=== PATIENT | female | born 1930 | race Caucasian/White ===

== ENCOUNTER → 2017-08-09 | Outpatient (CLI) | payer OTHER ==
[2015-01-15 14:09] VITALS: BP 111/60
--- NOTE | 2017-08-09 14:23 | VAS ---
HISTORY: Painful area to left blake x1 day. Study: Left lower extremity ultrasound. Comparison: None. TECHNIQUE: Multiple huang scale and color flow Doppler images of the deep venous system were obtained of the left lower extremity. FINDINGS: The deep venous system of the left lower extremity was evaluated from the level of the common femoral vein through the popliteal vein. Normal color flow and augmentation can be observed. In addition, normal compression is seen throughout the deep venous system. IMPRESSION: Negative for DVT. Reported By:
== END ==
LOC: RAD 13:03
PROVIDERS: ATTEND Internal Medicine
DX: M79.662 Pain in left lower leg (principal)
CPT/HCPCS: 93971

== ENCOUNTER 2018-05-02 17:19 | Observation (INO) ==
[2018-05-02 18:55] LABS: BASOPHILS # (AUTO) 0.1 X10^3/uL (0.0-0.1); BASOPHILS % (AUTO) 0.9 % (0.2-1.0); EOSINOPHILS # (AUTO) 0.2 x10^3/uL (0.0-0.2); HEMATOCRIT 40.8 % (36.0-47.0); HEMOGLOBIN 13.9 g/dL (12.0-16.0); LYMPHOCYTES # (AUTO) 2.2 X10^3/uL (1.3-2.9); LYMPHOCYTES % (AUTO) 29.3 % (21.0-51.0); MEAN CORPUSCULAR HEMOGLOBIN 33.6 pg (27.0-34.0); MEAN CORPUSCULAR VOLUME 98.6 fL (80.0-100.0); MEAN PLATELET VOLUME 8.9 fL (7.4-11.0); MONOCYTES # (AUTO) 0.6 x10^3/uL (0.3-0.8); MONOCYTES % (AUTO) 8.3 % (0.0-13.0); NEUTROPHILS # (AUTO) 4.4 x10^3/uL (2.2-4.8); NEUTROPHILS % (AUTO) 58.5 % (42.0-75.0); PLATELET COUNT 176 X10^3/uL (150.0-450.0); RED BLOOD COUNT 4.14 X10^6/uL (3.5-5.4); RED CELL DISTRIBUTION WIDTH 12.9 % (11.6-16.5); WHITE BLOOD COUNT 7.4 X10^3/uL (3.6-10.0)
[2018-05-02 19:10] LABS: ALANINE AMINOTRANSFERASE 22 Units/L (12-78); ALBUMIN 3.8 g/dL (3.4-5.0); ALKALINE PHOSPHATASE 58 Units/L (46-116); ASPARTATE AMINO TRANSFERASE 17 Units/L (15-37); BLOOD UREA NITROGEN 31 mg/dL (7-18); CALCIUM 9.1 mg/dL (8.5-10.1); CARBON DIOXIDE 29.1 mmol/L (21-32); CHLORIDE 107 mmol/L (98-107); CREATININE 1.28 mg/dL (0.55-1.02); SODIUM 143 mmol/L (136-145); TOTAL PROTEIN 7.2 g/dL (6.4-8.2); eGFR NON BLACK RACES 42 (>60)
[2018-05-02] MEDS: MILK OF MAGNESIA PO SCH (20:05)
[2018-05-02] MEDS: COLACE CAP 100 MG PO SCH (20:05)
[2018-05-02] MEDS: MIRALAX POWDER (1 DOSE 17 G) PO SCH (20:05)
--- NOTE | 2018-05-02 20:09 | RAD ---
HISTORY: Abdominal pain Study: Frontal view of the chest, flat and upright views of the abdomen Comparison: None. Findings: Cardiomediastinal silhouette is normal in size. No focal consolidations, pleural effusions or pneumothorax. Bilateral hyper expansion with coarsening of interstitial markings.. Flat and upright views of the abdomen demonstrates a normal bowel gas pattern. No free air. No abnormal calcifications or abnormal soft tissue shadows. No acute bony abnormalities. IMPRESSION: 1. No acute cardiopulmonary disease. 2. No evidence for acute abdominal pathology. Reported By:
--- NOTE | 2018-05-02 20:10 | RAD ---
HISTORY: Fall with pain Study: 5 views of the lumbar spine Comparison: MRI lumbar spine 05/04/2016 Findings: Normal alignment without subluxation or listhesis. Severe multilevel degenerative disc disease. Chronic L3 compression deformity. Sacroiliac joints are unremarkable. No evidence for acute fracture can be identified. IMPRESSION: 1. No acute abnormality of the lumbar spine. Reported By:
--- NOTE | 2018-05-02 20:15 | RAD ---
HISTORY: Fall with pain Study: Single view of the pelvis and 1 views of the right hip. Comparison: None Findings: A single frontal view of the pelvis demonstrates the pelvic ring to be intact. No acute fractures or dislocations. Sacroiliac joints are normal appearance. The femoral heads appear well seated in the acetabulum. Dedicated views of the hip fails to demonstrate evidence for fracture or significant joint abnormality. Impression: 1. No acute abnormality of the right hip. Reported By:
[2018-05-02] MEDS ORDERED: TORADOL 15 MG VIAL IVP PRN (20:21)
[2018-05-02] MEDS: NS 1000 ML 1,000 ML IV SCH (20:21)
[2018-05-02 21:20] VITALS: BMI 29.0
[2018-05-02] MEDS ORDERED: RESTORIL CAP 15 MG PO PRN (22:04)
[2018-05-02] MEDS: NORCO 10/325 TAB PO PRN (22:40)
[2018-05-02 23:33] LABS: BILIRUBIN,URINE NEGATIVE (NEGATIVE); BLOOD/HEMOGLOBIN,URINE 1+ (NEGATIVE); GLUCOSE, URINE NEGATIVE (NEGATIVE); KETONES,URINE NEGATIVE (NEGATIVE); LEUKOCYTE ESTERASE ,URINE 1+ (NEGATIVE); NITRITES,URINE NEGATIVE (NEGATIVE); PROTEIN,URINE NEGATIVE (NEGATIVE); UROBILINOGEN,URINE NORMAL (NORMAL)
[2018-05-02 23:41] LABS: APPEARANCE,URINE CLEAR (CLEAR); COLOR,URINE PALE YELLOW (YELLOW)
[2018-05-02 23:42] LABS: BACTERIA,URINE NEGATIVE /HPF (NEGATIVE); RBC,URINE 0-2 /HPF (NONE SEEN); SQUAMOUS EPITHELIAL CELL,UR RARE /HPF (NEGATIVE)
[2018-05-03 05:20] LABS: BASOPHILS # (AUTO) 0.1 X10^3/uL (0.0-0.1); BASOPHILS % (AUTO) 0.9 % (0.2-1.0); EOSINOPHILS # (AUTO) 0.3 x10^3/uL (0.0-0.2); EOSINOPHILS % (AUTO) 4.1 % (0.9-2.9); HEMATOCRIT 38.4 % (36.0-47.0); HEMOGLOBIN 13.1 g/dL (12.0-16.0); LYMPHOCYTES # (AUTO) 2.4 X10^3/uL (1.3-2.9); LYMPHOCYTES % (AUTO) 35.6 % (21.0-51.0); MEAN CORPUSCULAR HEMOGLOBIN 33.8 pg (27.0-34.0); MEAN CORPUSCULAR VOLUME 99.5 fL (80.0-100.0); MEAN PLATELET VOLUME 9.4 fL (7.4-11.0); MONOCYTES # (AUTO) 0.7 x10^3/uL (0.3-0.8); NEUTROPHILS # (AUTO) 3.4 x10^3/uL (2.2-4.8); NEUTROPHILS % (AUTO) 49.4 % (42.0-75.0); PLATELET COUNT 159 X10^3/uL (150.0-450.0); RED BLOOD COUNT 3.86 X10^6/uL (3.5-5.4); RED CELL DISTRIBUTION WIDTH 12.7 % (11.6-16.5); WHITE BLOOD COUNT 6.9 X10^3/uL (3.6-10.0)
[2018-05-03 05:41] LABS: ALANINE AMINOTRANSFERASE 21 Units/L (12-78); ALBUMIN 3.1 g/dL (3.4-5.0); ALKALINE PHOSPHATASE 51 Units/L (46-116); ASPARTATE AMINO TRANSFERASE 20 Units/L (15-37); BLOOD UREA NITROGEN 28 mg/dL (7-18); CALCIUM 8.5 mg/dL (8.5-10.1); CARBON DIOXIDE 26.9 mmol/L (21-32); CHLORIDE 107 mmol/L (98-107); COR CA(FOR HYPOALB) 9.2 mg/dL (8.5-10.1); CREATININE 1.03 mg/dL (0.55-1.02); SODIUM 142 mmol/L (136-145); TOTAL PROTEIN 6.2 g/dL (6.4-8.2); eGFR NON BLACK RACES 54 (>60)
[2018-05-03] MEDS: MILK OF MAGNESIA PO SCH ×5 (08:30→20:42)
[2018-05-03] MEDS: COLACE CAP 100 MG PO SCH ×3 (08:30→20:40)
[2018-05-03] MEDS: NORCO 10/325 TAB PO PRN ×2 (08:30→20:46)
[2018-05-03] MEDS: MIRALAX POWDER (1 DOSE 17 G) PO SCH (08:30)
[2018-05-03] MEDS: NS 1000 ML 1,000 ML IV SCH ×2 (08:32→23:45)
[2018-05-03] MEDS: SINGULAIR TAB 10 MG PO SCH (11:01)
[2018-05-03] MEDS: ZANTAC PO SCH (11:01)
[2018-05-03] MEDS: VITAMIN D3 PO SCH (11:01)
[2018-05-03] MEDS: HEMOCYTE-PLUS PO SCH (11:01)
[2018-05-03] MEDS: COZAAR PO SCH (11:02)
[2018-05-03] MEDS: PriLOSEC PO SCH (11:02)
[2018-05-03] MEDS: LOVENOX INJ 30 MG SYR SC SCH (11:04)
[2018-05-03] MEDS: SYNTHROID 75 mcg TAB PO SCH (11:05)
[2018-05-03] MEDS: NEURONTIN CAP 300 MG PO SCH ×3 (11:05→22:10)
--- NOTE | 2018-05-03 11:30 | US ---
History: Neck pain Study: Ultrasound of the neck Lungs: No abnormal mass or adenopathy or fluid collection is demonstrated. There is a large amount of calcified plaque in the distal right common carotid artery and carotid bulb. This is much more than demonstrated on the carotid duplex ultrasound examination of October 2011. Impression: 1. Severe atherosclerotic plaque at the right common carotid artery bifurcation, apparently progressive since 2011 2. No neck mass or adenopathy demonstrated Reported By:
[2018-05-03] MEDS: LIPITOR TAB 20 MG PO SCH (20:40)
[2018-05-03] MEDS: ZyrTEC TAB 10 MG PO SCH (20:40)
[2018-05-03] MEDS: AMBIEN PO PRN (20:41)
[2018-05-04 05:19] LABS: BASOPHILS # (AUTO) 0.1 X10^3/uL (0.0-0.1); BASOPHILS % (AUTO) 0.9 % (0.2-1.0); EOSINOPHILS # (AUTO) 0.2 x10^3/uL (0.0-0.2); EOSINOPHILS % (AUTO) 3.5 % (0.9-2.9); HEMATOCRIT 34.7 % (36.0-47.0); HEMOGLOBIN 11.7 g/dL (12.0-16.0); LYMPHOCYTES # (AUTO) 1.9 X10^3/uL (1.3-2.9); MEAN CORPUSCULAR HEMOGLOBIN 33.7 pg (27.0-34.0); MEAN CORPUSCULAR HGB CONC 33.8 g/dL (33.0-35.0); MEAN CORPUSCULAR VOLUME 99.7 fL (80.0-100.0); MEAN PLATELET VOLUME 9.3 fL (7.4-11.0); MONOCYTES # (AUTO) 0.6 x10^3/uL (0.3-0.8); MONOCYTES % (AUTO) 10.1 % (0.0-13.0); NEUTROPHILS # (AUTO) 2.8 x10^3/uL (2.2-4.8); NEUTROPHILS % (AUTO) 50.5 % (42.0-75.0); PLATELET COUNT 134 X10^3/uL (150.0-450.0); RED BLOOD COUNT 3.48 X10^6/uL (3.5-5.4); RED CELL DISTRIBUTION WIDTH 13.1 % (11.6-16.5); WHITE BLOOD COUNT 5.5 X10^3/uL (3.6-10.0)
[2018-05-04 05:26] LABS: ALANINE AMINOTRANSFERASE 20 Units/L (12-78); ALBUMIN 2.6 g/dL (3.4-5.0); ALKALINE PHOSPHATASE 56 Units/L (46-116); ASPARTATE AMINO TRANSFERASE 18 Units/L (15-37); BLOOD UREA NITROGEN 26 mg/dL (7-18); CALCIUM 7.7 mg/dL (8.5-10.1); CARBON DIOXIDE 26.3 mmol/L (21-32); CHLORIDE 111 mmol/L (98-107); COR CA(FOR HYPOALB) 8.8 mg/dL (8.5-10.1); COR NA(FOR HYPERGLY) 144 mmol/L (136-145); CREATININE 1.07 mg/dL (0.55-1.02); SODIUM 144 mmol/L (136-145); TOTAL PROTEIN 5.3 g/dL (6.4-8.2); eGFR NON BLACK RACES 51 (>60)
[2018-05-04] MEDS: NEURONTIN CAP 300 MG PO SCH ×3 (05:49→21:28)
[2018-05-04] MEDS: PriLOSEC PO SCH (10:15)
[2018-05-04] MEDS: ZANTAC PO SCH (10:15)
[2018-05-04] MEDS: VITAMIN D3 PO SCH (10:15)
[2018-05-04] MEDS: HEMOCYTE-PLUS PO SCH (10:15)
[2018-05-04] MEDS: SINGULAIR TAB 10 MG PO SCH (10:15)
[2018-05-04] MEDS: SYNTHROID 75 mcg TAB PO SCH (10:15)
[2018-05-04] MEDS: LOVENOX INJ 30 MG SYR SC SCH (10:16)
[2018-05-04] MEDS: MILK OF MAGNESIA PO SCH ×4 (10:16→21:31)
[2018-05-04] MEDS: COLACE CAP 100 MG PO SCH ×2 (10:16→21:27)
[2018-05-04] MEDS: COZAAR PO SCH (10:16)
[2018-05-04] MEDS: MIRALAX POWDER (1 DOSE 17 G) PO SCH (10:16)
[2018-05-04] MEDS: NS 1000 ML 1,000 ML IV SCH ×3 (11:53→21:27)
[2018-05-04] MEDS: LIPITOR TAB 20 MG PO SCH (21:27)
[2018-05-04] MEDS: ZyrTEC TAB 10 MG PO SCH (21:27)
[2018-05-04] MEDS: AMBIEN PO PRN (21:27)
[2018-05-04] MEDS: NORCO 10/325 TAB PO PRN (21:34)
[2018-05-05 05:22] LABS: BASOPHILS # (AUTO) 0.1 X10^3/uL (0.0-0.1); EOSINOPHILS # (AUTO) 0.2 x10^3/uL (0.0-0.2); EOSINOPHILS % (AUTO) 4.1 % (0.9-2.9); HEMATOCRIT 34.3 % (36.0-47.0); HEMOGLOBIN 11.5 g/dL (12.0-16.0); LYMPHOCYTES # (AUTO) 2.1 X10^3/uL (1.3-2.9); MEAN CORPUSCULAR HEMOGLOBIN 33.4 pg (27.0-34.0); MEAN CORPUSCULAR HGB CONC 33.5 g/dL (33.0-35.0); MEAN CORPUSCULAR VOLUME 99.8 fL (80.0-100.0); MEAN PLATELET VOLUME 9.4 fL (7.4-11.0); MONOCYTES # (AUTO) 0.5 x10^3/uL (0.3-0.8); MONOCYTES % (AUTO) 9.1 % (0.0-13.0); NEUTROPHILS # (AUTO) 2.7 x10^3/uL (2.2-4.8); NEUTROPHILS % (AUTO) 47.8 % (42.0-75.0); PLATELET COUNT 138 X10^3/uL (150.0-450.0); RED BLOOD COUNT 3.43 X10^6/uL (3.5-5.4); RED CELL DISTRIBUTION WIDTH 12.9 % (11.6-16.5); WHITE BLOOD COUNT 5.7 X10^3/uL (3.6-10.0)
[2018-05-05 05:36] LABS: ALANINE AMINOTRANSFERASE 21 Units/L (12-78); ALBUMIN 2.6 g/dL (3.4-5.0); ALKALINE PHOSPHATASE 58 Units/L (46-116); ASPARTATE AMINO TRANSFERASE 21 Units/L (15-37); BLOOD UREA NITROGEN 19 mg/dL (7-18); CALCIUM 7.8 mg/dL (8.5-10.1); CARBON DIOXIDE 24.1 mmol/L (21-32); CHLORIDE 113 mmol/L (98-107); COR CA(FOR HYPOALB) 8.9 mg/dL (8.5-10.1); CREATININE 1.06 mg/dL (0.55-1.02); SODIUM 145 mmol/L (136-145); TOTAL PROTEIN 5.3 g/dL (6.4-8.2); eGFR NON BLACK RACES 52 (>60)
[2018-05-05] MEDS: NEURONTIN CAP 300 MG PO SCH (05:41)
[2018-05-05] MEDS: LOVENOX INJ 30 MG SYR SC SCH (08:53)
[2018-05-05] MEDS: MILK OF MAGNESIA PO SCH ×2 (08:53→09:01)
[2018-05-05] MEDS: SINGULAIR TAB 10 MG PO SCH (08:54)
[2018-05-05] MEDS: PriLOSEC PO SCH (08:54)
[2018-05-05] MEDS: HEMOCYTE-PLUS PO SCH (08:54)
[2018-05-05] MEDS: VITAMIN D3 PO SCH (08:54)
[2018-05-05] MEDS: SYNTHROID 75 mcg TAB PO SCH (08:54)
[2018-05-05] MEDS: COLACE CAP 100 MG PO SCH (08:54)
[2018-05-05] MEDS: COZAAR PO SCH (08:54)
[2018-05-05] MEDS: ZANTAC PO SCH (08:54)
[2018-05-05] MEDS: MIRALAX POWDER (1 DOSE 17 G) PO SCH (08:55)
[2018-05-05 15:48] VITALS: BP 137/75
--- NOTE | 2018-05-23 09:04 | DR.UPDATE ---
H&P Update History and Physical Update: WAS SEEN IN THE OFFICE TODAY FOR CONSTIPATION, DESPITE US OF LAXATIVES AT HOME. SHE ALSO REPORTED BACK PAIN, ABDOMINAL PAIN, AND FREQUENT FALLS AT HOME. SHE WAS ADMITTED FOR FURTHER EVALUATION AND TREATMENT. A H&P WAS COMPLETED PRIOR TO ADMISSION. PATIENT HAS BEEN SEEN AND EXAMINED WITH NO CHANGES NOTED TO H&P. Changes noted: NO Yes with the following:
--- NOTE | 2018-05-23 11:09 | PCM.PROG ---
Progress Note - Progress Note for Day of Date of Exam: 05/03/18 - Subjective Subjective: WAS ADMITTED FOR CONSTIPATION, ABDOMINAL PAIN, BACK PAIN, AND FREQUENT FALLS. TODAY, SHE IS ALERT AND ORIENTED, LYING IN BED ON MORNING ROUNDS. SHE CONTINUES WITH COMPLAINTS OF LOWER BACK PAIN AND ABDOMINAL PAIN, BUT REPORTS SLIGHT IMPROVEMENT SINCE YESTERDAY. SHE HAS HAD SEVERAL BOWEL MOVMEMENTS SINCE ADMISSION. SHE ALSO REPORTS THAT HER NECK IS SWOLLEN THIS MORNING. ON EXAMINATION, HEART IS REGULAR IN RATE AND RHYTHM. THERE IS SLIGHT SWELLING APPARENT TO THE NECK WITH TENDERNESS NOTED TO RIGHT SIDE ON PALPATION. BILATERAL LUNGS NOTED WITH DIMINISHED LUNG SOUNDS THROUGHOUT. ABDOMEN IS ROUND, SOFT, AND NOTED WITH MILD, DIFFUSE TENDERNESS. HER VITALS THIS MORNING ARE 98.1-78- 20-95%-181/95. LABS WERE OBTAINED. ABNORMAL LAB VALUES INCLUDE THE FOLLOWING: BUN 28, CREATININE 1.03, GLUCOSE 101, TOTAL PROTEIN 6.2, ALBUMIN 3.1. HIP XRAY OBTAINED ON ADMISSION WAS NORMAL. LUMBAR SPINE XRAY REVEALED NO ACUTE ABNORMALITY. TODAY, WE WILL OBTAIN A SOFT TISSUE ULTRASOUND OF THE NECK AND START LOVENOX 30MG SC DAILY. OTHERWISE, WE WILL CONTINUE WITH IV HYDRATION AND PAIN CONTROL. WE PLAN TO FOLLOW UP WITH AM LABS AND CONTINUE TO MONITOR. - Past Medical Family Social History Past Med/Fam/Surg Hx: No changes since H&P Allergies: Allergies Penicillins Allergy (Verified 05/02/18 21:06) Sulfa (Sulfonamide Antibiotics) Allergy (Verified 05/02/18 21:06) - Review of Systems ROS: No change since H&P - Vital Signs and I&O's Vital Signs: Temperature 98.6 F Pulse Rate [Left Brachial] 73 Pulse Rate [Left Dorsalis 72 Pedis] Pulse Rate [Right Brachial] 66 Respiratory Rate 20 Blood Pressure [Left Arm] 137/75 Blood Pressure [Right Arm] 145/64 Blood Pressure 111/60 O2 Sat by Pulse Oximetry 95 - Physical Exam Oriented: Normal Eyes: Normal Ear: Normal Nose: Normal Throat: Normal Respiratory: Diminished Cardiovascular: Normal. negative: S3, S4, Murmur : Normal Auscultation: Bowel Sounds: Normal Palpation: Normal Tenderness: Diffuse, Mild. negative: Rebound, Guarding, Rigidity Skin: Normal Musculoskeletal: Hip, Back:Lumbar, Tender Psychiatric: Normal Mood Description: Calm Affect: Normal Speech Pattern: Clear, Appropriate - Laboratory and Diagnostics Result Diagrams: 05/05/18 04:10 05/05/18 04:10 Labs: 05/02/18 23:22 Urine,Clean Catch Urine Culture - Final Laboratory WBC 5.7 X10^3/uL (3.6-10.0) 05/05/18 04:10 RBC 3.43 X10^6/uL (3.5-5.4) L 05/05/18 04:10 Hgb 11.5 g/dL (12.0-16.0) L 05/05/18 04:10 Hct 34.3 % (36.0-47.0) L 05/05/18 04:10 MCV 99.8 fL (80.0-100.0) 05/05/18 04:10 MCH 33.4 pg (27.0-34.0) 05/05/18 04:10 MCHC 33.5 g/dL (33.0-35.0) 05/05/18 04:10 RDW 12.9 % (11.6-16.5) 05/05/18 04:10 Plt Count 138 X10^3/uL (150.0-450.0) L 05/05/18 04:10 MPV 9.4 fL (7.4-11.0) 05/05/18 04:10 Neut % (Auto) 47.8 % (42.0-75.0) 05/05/18 04:10 Lymph % (Auto) 38.0 % (21.0-51.0) 05/05/18 04:10 [place] % (Auto) 9.1 % (0.0-13.0) 05/05/18 04:10 Eos % (Auto) 4.1 % (0.9-2.9) H 05/05/18 04:10 Baso % (Auto) 1.0 % (0.2-1.0) 05/05/18 04:10 Neut # (Auto) 2.7 x10^3/uL (2.2-4.8) 05/05/18 04:10 Lymph # (Auto) 2.1 X10^3/uL (1.3-2.9) 05/05/18 04:10 [place] # (Auto) 0.5 x10^3/uL (0.3-0.8) 05/05/18 04:10 Eos # (Auto) 0.2 x10^3/uL (0.0-0.2) 05/05/18 04:10 Baso # (Auto) 0.1 X10^3/uL (0.0-0.1) 05/05/18 04:10 Absolute Nucleated RBC 0.1 /100WBC 05/05/18 04:10 Sodium 145 mmol/L (136-145) 05/05/18 04:10 Corrected Sodium TNP 05/05/18 04:10 Potassium 3.6 mmol/L (3.5-5.1) 05/05/18 04:10 Chloride 113 mmol/L (98-107) H 05/05/18 04:10 Carbon Dioxide 24.1 mmol/L (21-32) 05/05/18 04:10 BUN 19 mg/dL (7-18) H 05/05/18 04:10 Creatinine 1.06 mg/dL (0.55-1.02) H 05/05/18 04:10 Est GFR (MDRD) Af Amer > 60 (>60) 05/05/18 04:10 Est GFR (MDRD) Non-Af 52 (>60) L 05/05/18 04:10 Glucose 98 mg/dL (65-99) 05/05/18 04:10 Calcium 7.8 mg/dL (8.5-10.1) L 05/05/18 04:10 Corrected Calcium 8.9 mg/dL (8.5-10.1) 05/05/18 04:10 Total Bilirubin 0.30 mg/dL (0.2-1.0) 05/05/18 04:10 AST 21 Units/L (15-37) 05/05/18 04:10 ALT 21 Units/L (12-78) 05/05/18 04:10 Alkaline Phosphatase 58 Units/L (46-116) 05/05/18 04:10 Total Protein 5.3 g/dL (6.4-8.2) L 05/05/18 04:10 Albumin 2.6 g/dL (3.4-5.0) L 05/05/18 04:10 Globulin 2.7 g/dL (2.5-4.5) 05/05/18 04:10 Albumin/Globulin Ratio 1.0 Ratio (1.1-2.1) L 05/05/18 04:10 Specimen Type Clean catch urine 05/02/18 23:22 Urine Color Pale yellow (YELLOW) 05/02/18 23:22 Urine Appearance Clear (CLEAR) 05/02/18 23:22 Urine pH 7.0 (5.0 - 8.0) 05/02/18 23:22 Ur Specific [place] 1.010 (1.000-1.030) 05/02/18 23:22 Urine Protein Negative (NEGATIVE) 05/02/18 23:22 Urine Glucose (UA) Negative (NEGATIVE) 05/02/18 23:22 Urine Ketones Negative (NEGATIVE) 05/02/18 23:22 Urine Occult Blood 1+ (NEGATIVE) 05/02/18 23:22 Urine Nitrite Negative (NEGATIVE) 05/02/18 23:22 Urine Bilirubin Negative (NEGATIVE) 05/02/18 23:22 Urine Urobilinogen Normal (NORMAL) 05/02/18 23:22 Ur Leukocyte Esterase 1+ (NEGATIVE) 05/02/18 23:22 Urine RBC 0-2 /HPF (NONE SEEN) 05/02/18 23:22 Urine WBC 0-2 /HPF (NONE SEEN) 05/02/18 23:22 Ur Squamous Epith Cells Rare /HPF (NEGATIVE) 05/02/18 23:22 Urine Bacteria Negative /HPF (NEGATIVE) 05/02/18 23:22 Ur Culture Indicated? No/not indicated 05/02/18 23:22 - Plan (1) Constipation Status: Acute Qualifiers: Constipation type: unspecified constipation type Qualified Code(s): K59.00 - Constipation, unspecified Plan: CONTINUE BOWEL REGIMEN (2) Abdominal pain Status: Acute Qualifiers: Abdominal location: generalized Qualified Code(s): R10.84 - Generalized abdominal pain Plan: IV TORADOL, NORCO, CONTINUE BOWEL REGIMEN, CONTINUE TO MONITOR (3) Intractable pain Status: Acute Plan: IV TORADOL, NORCO, CONTINUE TO MONITOR (4) Back pain Status: Acute Qualifiers: Back pain location: low back pain Chronicity: acute Back pain laterality: unspecified Sciatica presence: unspecified whether sciatica present Qualified Code(s): M54.5 - Low back pain Plan: IV TORADOL, NORCO, CONTINUE TO MONITOR (5) Frequent falls Status: Acute Plan: PHYSICAL THERAPY
== END 2018-05-05 13:30 | disposition home or self-care (01) ==
LOC: MED/SURG
PROVIDERS: ADMIT Internal Medicine; ATTEND Internal Medicine
DX: E11.65 Type 2 diabetes mellitus with hyperglycemia; R10.84 Generalized abdominal pain; R94.4 Abnormal results of kidney function studies; W18.39XA Other fall on same level, initial encounter; E03.8 Other specified hypothyroidism; R94.31 Abnormal electrocardiogram [ECG] [EKG]; M54.5 Low back pain; Z79.899 Other long term (current) drug therapy; H65.23 Chronic serous otitis media, bilateral; M25.551 Pain in right hip; I67.2 Cerebral atherosclerosis; K59.09 Other constipation; E55.9 Vitamin D deficiency, unspecified; R29.6 Repeated falls; E78.2 Mixed hyperlipidemia; M54.2 Cervicalgia
CPT/HCPCS: 36415; 72110; 73501; 74022; 76536; 80053; 81001; 85025; 87086; 93005; 96367; 96372; 96374; A4216; A4222; G0378; J1650; J1885; J7030

== ENCOUNTER 2018-09-18 08:44 | Observation (INO) ==
[2018-09-18] MEDS: NS 1000 ML 1,000 ML IV SCH (10:41)
[2018-09-18 10:58] LABS: BASOPHILS # (AUTO) 0.1 X10^3/uL (0.0-0.1); BASOPHILS % (AUTO) 0.9 % (0.2-1.0); EOSINOPHILS # (AUTO) 0.2 x10^3/uL (0.0-0.2); EOSINOPHILS % (AUTO) 3.4 % (0.9-2.9); HEMATOCRIT 36.4 % (36.0-47.0); HEMOGLOBIN 12.2 g/dL (12.0-16.0); LYMPHOCYTES # (AUTO) 1.6 X10^3/uL (1.3-2.9); LYMPHOCYTES % (AUTO) 27.4 % (21.0-51.0); MEAN CORPUSCULAR HEMOGLOBIN 33.6 pg (27.0-34.0); MEAN CORPUSCULAR HGB CONC 33.6 g/dL (33.0-35.0); MEAN CORPUSCULAR VOLUME 99.9 fL (80.0-100.0); MEAN PLATELET VOLUME 8.3 fL (7.4-11.0); MONOCYTES # (AUTO) 0.7 x10^3/uL (0.3-0.8); MONOCYTES % (AUTO) 11.2 % (0.0-13.0); NEUTROPHILS # (AUTO) 3.4 x10^3/uL (2.2-4.8); NEUTROPHILS % (AUTO) 57.1 % (42.0-75.0); PLATELET COUNT 178 X10^3/uL (150.0-450.0); RED BLOOD COUNT 3.65 X10^6/uL (3.5-5.4); RED CELL DISTRIBUTION WIDTH 13.2 % (11.6-16.5)
[2018-09-18 11:03] VITALS: BMI 29.0
[2018-09-18 11:05] LABS: ALANINE AMINOTRANSFERASE 24 Units/L (12-78); ALBUMIN 3.3 g/dL (3.4-5.0); ALKALINE PHOSPHATASE 56 Units/L (46-116); ASPARTATE AMINO TRANSFERASE 19 Units/L (15-37); BLOOD UREA NITROGEN 24 mg/dL (7-18); CALCIUM 8.9 mg/dL (8.5-10.1); CHLORIDE 107 mmol/L (98-107); COR CA(FOR HYPOALB) 9.5 mg/dL (8.5-10.1); CREATININE 1.18 mg/dL (0.55-1.02); SODIUM 141 mmol/L (136-145); TOTAL PROTEIN 6.4 g/dL (6.4-8.2); eGFR NON BLACK RACES 46 (>60)
--- NOTE | 2018-09-18 11:39 | RAD ---
History: Shortness of breath Study: AP chest Comparison: Report of a chest x-ray of December 2014 Findings: The lungs appear hyperinflated. The heart size is normal. There is no edema or effusion congestion or pneumothorax. There is minimal left apical pleural thickening. Impression: Hyperinflation suggesting COPD Reported By:
--- NOTE | 2018-09-18 11:56 | CT ---
HEAD CT WITHOUT IV CONTRAST CLINICAL INDICATION: Weakness and fatigue TECHNIQUE: Axial CT images from skull base to vertex without IV contrast.Dose reduction techniques including Automated Exposure Control (AEC) and adjustment of mA and kV were utlized. COMPARISON: 02/22/2015 FINDINGS: Diffuse patchy and confluent white matter hypoattenuation with associated volume loss. There is no evidence of acute infarction, intracranial hemorrhage, mass or mass effect, or abnormal extra-axial collection. The density of the larger dural venous sinuses is normal. Age-related, ex-vacuo dilatation of the ventricles and sulci. The skull base and calvarium are normal. Unerupted left maxillary molar. Air and fluid within the left maxillary sinus.. IMPRESSION: 1. No acute intracranial abnormality. Chronic microangiopathic changes and ex vacuo dilatation of the ventricles and sulci. 2. Air in fluid within the left maxillary sinus with findings of chronic sinusitis. Correlate Reported By:
[2018-09-18 12:55] LABS: BILIRUBIN,URINE NEGATIVE (NEGATIVE); BLOOD/HEMOGLOBIN,URINE NEGATIVE (NEGATIVE); GLUCOSE, URINE NEGATIVE (NEGATIVE); KETONES,URINE NEGATIVE (NEGATIVE); LEUKOCYTE ESTERASE ,URINE 1+ (NEGATIVE); NITRITES,URINE NEGATIVE (NEGATIVE); PH,URINE 6.5 (5.0 - 8.0); PROTEIN,URINE NEGATIVE (NEGATIVE); UROBILINOGEN,URINE NORMAL (NORMAL)
[2018-09-18 13:00] LABS: APPEARANCE,URINE CLEAR (CLEAR); COLOR,URINE YELLOW (YELLOW)
[2018-09-18 13:05] LABS: RBC,URINE 0-2 /HPF (NONE SEEN)
[2018-09-18 13:06] LABS: AMORPHOUS SEDIMENT,UR 1+ /HPF (NEGATIVE); BACTERIA,URINE TRACE /HPF (NEGATIVE); SQUAMOUS EPITHELIAL CELL,UR RARE /HPF (NEGATIVE)
[2018-09-18] MEDS ORDERED: TRAMADOL ACETAMINOPHEN PO PRN (19:38)
[2018-09-18] MEDS ORDERED: FLUTICASONE PROPION SALMETEROL IN SCH (19:45)
[2018-09-18] MEDS: REQUIP PO SCH (20:33)
[2018-09-18] MEDS: MIRALAX POWDER (1 DOSE 17 G) PO SCH (20:33)
[2018-09-18] MEDS: LIPITOR TAB 20 MG PO SCH (20:33)
[2018-09-18] MEDS: NORCO 10/325 TAB PO PRN (20:34)
[2018-09-18] MEDS: AMBIEN PO PRN (20:34)
[2018-09-18] MEDS: ZyrTEC TAB 10 MG PO SCH (20:37)
[2018-09-18] MEDS: COZAAR PO SCH (20:37)
[2018-09-18] MEDS: PULMICORT NEB TX 0.5 MG NEB SCH (21:15)
[2018-09-18] MEDS: NEURONTIN CAP 300 MG PO SCH (21:17)
[2018-09-19] MEDS ORDERED: PROVENTIL NEB TX 0.083% 2.5MG/ 3ML NEB SCH
[2018-09-19] MEDS: NS 1000 ML 1,000 ML IV SCH ×2 (00:38→13:09)
[2018-09-19] MEDS: NEURONTIN CAP 300 MG PO SCH ×3 (05:32→21:00)
[2018-09-19 06:09] LABS: BASOPHILS # (AUTO) 0.1 X10^3/uL (0.0-0.1); EOSINOPHILS # (AUTO) 0.2 x10^3/uL (0.0-0.2); EOSINOPHILS % (AUTO) 3.9 % (0.9-2.9); HEMATOCRIT 34.4 % (36.0-47.0); HEMOGLOBIN 11.5 g/dL (12.0-16.0); LYMPHOCYTES % (AUTO) 34.3 % (21.0-51.0); MEAN CORPUSCULAR HEMOGLOBIN 33.6 pg (27.0-34.0); MEAN CORPUSCULAR HGB CONC 33.6 g/dL (33.0-35.0); MEAN CORPUSCULAR VOLUME 100.2 fL (80.0-100.0); MEAN PLATELET VOLUME 8.5 fL (7.4-11.0); MONOCYTES # (AUTO) 0.6 x10^3/uL (0.3-0.8); MONOCYTES % (AUTO) 10.4 % (0.0-13.0); NEUTROPHILS # (AUTO) 2.9 x10^3/uL (2.2-4.8); NEUTROPHILS % (AUTO) 50.4 % (42.0-75.0); PLATELET COUNT 164 X10^3/uL (150.0-450.0); RED BLOOD COUNT 3.43 X10^6/uL (3.5-5.4); RED CELL DISTRIBUTION WIDTH 13.2 % (11.6-16.5); WHITE BLOOD COUNT 5.7 X10^3/uL (3.6-10.0)
[2018-09-19 06:16] LABS: ALANINE AMINOTRANSFERASE 19 Units/L (12-78); ALBUMIN 2.7 g/dL (3.4-5.0); ALKALINE PHOSPHATASE 44 Units/L (46-116); ASPARTATE AMINO TRANSFERASE 16 Units/L (15-37); BLOOD UREA NITROGEN 18 mg/dL (7-18); CALCIUM 8.3 mg/dL (8.5-10.1); CARBON DIOXIDE 24.7 mmol/L (21-32); CHLORIDE 113 mmol/L (98-107); COR CA(FOR HYPOALB) 9.3 mg/dL (8.5-10.1); CREATININE 0.93 mg/dL (0.55-1.02); SODIUM 145 mmol/L (136-145); TOTAL PROTEIN 5.4 g/dL (6.4-8.2); eGFR NON BLACK RACES > 60 (>60)
[2018-09-19] MEDS ORDERED: SYNTHROID 75 mcg TAB PO SCH (06:30)
[2018-09-19] MEDS ORDERED: POTASSIUM CHL 40 MEQ/NS 0.45% 500 ML IV PRN (08:05)
[2018-09-19] MEDS ORDERED: K-DUR TAB 20 MEQ PO PRN (08:05)
[2018-09-19] MEDS ORDERED: MICRO K EXTEN CAP 10 MEQ PO PRN (08:05)
[2018-09-19] MEDS ORDERED: POTASSIUM CHL 60 MEQ/NS 0.45% 500 ML IV PRN (08:05)
[2018-09-19] MEDS ORDERED: K-RIDER 10 MEQ/NS 100 ML 10 MEQ/100 ML BAG IV PRN (08:05)
[2018-09-19] MEDS ORDERED: KLOR-CON PO PRN (08:05)
[2018-09-19] MEDS ORDERED: POTASSIUM CHLORIDE LIQ 20 MEQ UDC PO PRN (08:05)
[2018-09-19] MEDS: PULMICORT NEB TX 0.5 MG NEB SCH ×2 (08:35→20:43)
[2018-09-19] MEDS: MAXZIDE 37.5/25 MG PO SCH (08:55)
[2018-09-19] MEDS: ASPIRIN EC 81 MG PO SCH (08:55)
[2018-09-19] MEDS: SINGULAIR TAB 10 MG PO SCH (08:55)
[2018-09-19] MEDS: HEMOCYTE-PLUS PO SCH (08:55)
[2018-09-19] MEDS: COZAAR PO SCH (08:56)
[2018-09-19] MEDS: PriLOSEC PO SCH (08:56)
[2018-09-19] MEDS: REQUIP PO SCH ×2 (08:56→20:46)
[2018-09-19] MEDS: ZANTAC PO SCH (08:57)
[2018-09-19] MEDS: TOPROL XL PO SCH (08:57)
[2018-09-19] MEDS: VITAMIN D3 PO SCH (08:57)
[2018-09-19] MEDS: PLAVIX PO SCH (08:57)
[2018-09-19] MEDS: DOCUSATE CALCIUM 240 MG PO SCH (08:58)
[2018-09-19] MEDS: NORCO 10/325 TAB PO PRN ×2 (09:01→20:56)
[2018-09-19] MEDS ORDERED: PROCALAMINE 3 % 1,000 ML IV SCH (10:00)
[2018-09-19] MEDS: ALBUMIN HUMAN 25%- 100 ML 100 ML IV SCH (10:42)
[2018-09-19] MEDS ORDERED: PHARMACY CONSULT - DOSE _____ XX SCH (13:00)
[2018-09-19] MEDS ORDERED: MAGNESIUM SULFATE 1 GRAM/100 mL PREMIX 1 GM/100 ML BAG IV PRN (17:52)
[2018-09-19] MEDS: LIPITOR TAB 20 MG PO SCH (20:46)
[2018-09-19] MEDS: ZyrTEC TAB 10 MG PO SCH (20:48)
[2018-09-19] MEDS: MIRALAX POWDER (1 DOSE 17 G) PO SCH (20:49)
[2018-09-19] MEDS: AMBIEN PO PRN (20:56)
[2018-09-20] MEDS: NS 1000 ML 1,000 ML IV SCH (06:13)
[2018-09-20] MEDS: NEURONTIN CAP 300 MG PO SCH (06:14)
[2018-09-20 06:36] LABS: BASOPHILS # (AUTO) 0.1 X10^3/uL (0.0-0.1); BASOPHILS % (AUTO) 1.3 % (0.2-1.0); EOSINOPHILS # (AUTO) 0.3 x10^3/uL (0.0-0.2); EOSINOPHILS % (AUTO) 4.6 % (0.9-2.9); HEMATOCRIT 34.3 % (36.0-47.0); HEMOGLOBIN 11.5 g/dL (12.0-16.0); LYMPHOCYTES # (AUTO) 1.9 X10^3/uL (1.3-2.9); LYMPHOCYTES % (AUTO) 33.4 % (21.0-51.0); MEAN CORPUSCULAR HEMOGLOBIN 33.3 pg (27.0-34.0); MEAN CORPUSCULAR HGB CONC 33.5 g/dL (33.0-35.0); MEAN CORPUSCULAR VOLUME 99.5 fL (80.0-100.0); MEAN PLATELET VOLUME 8.8 fL (7.4-11.0); MONOCYTES # (AUTO) 0.7 x10^3/uL (0.3-0.8); MONOCYTES % (AUTO) 11.9 % (0.0-13.0); NEUTROPHILS # (AUTO) 2.8 x10^3/uL (2.2-4.8); NEUTROPHILS % (AUTO) 48.8 % (42.0-75.0); PLATELET COUNT 154 X10^3/uL (150.0-450.0); RED BLOOD COUNT 3.45 X10^6/uL (3.5-5.4); WHITE BLOOD COUNT 5.8 X10^3/uL (3.6-10.0)
[2018-09-20 06:51] LABS: ALANINE AMINOTRANSFERASE 30 Units/L (12-78); ALKALINE PHOSPHATASE 54 Units/L (46-116); ASPARTATE AMINO TRANSFERASE 24 Units/L (15-37); BLOOD UREA NITROGEN 19 mg/dL (7-18); CALCIUM 8.6 mg/dL (8.5-10.1); CARBON DIOXIDE 24.7 mmol/L (21-32); CHLORIDE 109 mmol/L (98-107); COR CA(FOR HYPOALB) 9.4 mg/dL (8.5-10.1); CREATININE 0.93 mg/dL (0.55-1.02); SODIUM 141 mmol/L (136-145); TOTAL PROTEIN 5.9 g/dL (6.4-8.2); eGFR NON BLACK RACES > 60 (>60)
[2018-09-20] MEDS ORDERED: SYNTHROID 75 mcg TAB PO SCH (07:30)
[2018-09-20] MEDS: PULMICORT NEB TX 0.5 MG NEB SCH (08:19)
[2018-09-20] MEDS: ALBUMIN HUMAN 25%- 100 ML 100 ML IV SCH (08:32)
[2018-09-20] MEDS: COZAAR PO SCH (08:33)
[2018-09-20] MEDS: ASPIRIN EC 81 MG PO SCH (08:33)
[2018-09-20] MEDS: HEMOCYTE-PLUS PO SCH (08:34)
[2018-09-20] MEDS: DOCUSATE CALCIUM 240 MG PO SCH (08:34)
[2018-09-20] MEDS: MAXZIDE 37.5/25 MG PO SCH (08:35)
[2018-09-20] MEDS: PLAVIX PO SCH (08:35)
[2018-09-20] MEDS: PriLOSEC PO SCH (08:35)
[2018-09-20] MEDS: TOPROL XL PO SCH (08:36)
[2018-09-20] MEDS: REQUIP PO SCH (08:36)
[2018-09-20] MEDS: SINGULAIR TAB 10 MG PO SCH (08:36)
[2018-09-20] MEDS: ZANTAC PO SCH (08:37)
[2018-09-20] MEDS: VITAMIN D3 PO SCH (08:37)
[2018-09-20 09:00] VITALS: BP 166/70
[2018-09-20] MEDS ORDERED: LOVENOX INJ 40 MG SYR SC SCH (09:00)
--- NOTE | 2018-10-01 20:23 | DR.UPDATE ---
H&P Update History and Physical Update: History and Physical reviewed and patient examined. Changes noted: Yes with the following: WAS SEEN IN THE OFFICE TODAY FOR A HOSPITAL FOLLOW-UP. SHE REPORTS INCREASED GENERALIZED WEAKNESS AND FATIGUE. SHE REPORTS PAIN TO BILATERAL LOWER EXTREMITIES AND UNSTEADY GAIT. WE ADMITTED PATIENT FOR FURTHER EVALUATION AND TREATMENT. ON ADMISSION, WE PLAN TO OBTAIN LABS, BRAIN CT, AND A CHEST XRAY. SHE WILL BE STARTED ON NORMAL SALINE AT 80ML/HR. WE WILL HAVE PHYSICAL THERAPY EVALUATE PATIENT. OTHERWISE, WE WILL FOLLOW UP WITH AM LABS AND CONTINUE TO MONITOR.
--- NOTE | 2018-10-01 21:02 | PCM.PROG ---
Progress Note - Progress Note for Day of Date of Exam: 09/19/18 - Subjective Subjective: WAS ADMITTED YESTERDAY DUE TO PERSISTENT WEAKNESS AND FATIGUE. TODAY, SHE IS ALERT AND ORIENTED, LYING IN BED ON MORNING ROUNDS. SHE CONTINUES WITH COMPLAINTS OF WEAKNESS AND LOWER EXTREMITY PAIN. SHE ALSO REPORTS RIGHT ELBOW PAIN AND HEADACHE THIS MORNING. ON EXAMINATION, HEART IS REGULAR IN RATE AND RHYTHM. BILATERAL LUNGS ARE NOTED WITH DIMINISHED LUNG SOUNDS THROUGHOUT. ABDOMEN IS ROUND, SOFT, AND NON-TENDER WITH NORMAL BOWEL SOUNDS NOTED IN ALL QUADRNATS. SHE IS NOTED WITH TENDERNESS THE RIGHT ELBOW. SLIGHT SWELLING NOTED. HER VITALS THIS MORNING ARE: 98.7-66-18-97%-134/60. LABS WERE OBTAINED. ABNORMAL LAB VALUES INCLUDE THE FOLLOWING: RBC 3.45, HGB 11.5, HCT 34.3, POTASSIUM 3.4, CHLORIDE 113, CALCIUM 8.3, ALK PHOS 44, TOTAL PROTEIN 5.5, ALBUMIN 2.7. A URINE CULTURE IS PENDING. SHE IS CURRENTLY RECEIVING NORMAL SALINE AT 00ML/HR AND HOME MEDICATIONS WERE RESUMED. TODAY, WE WILL START IV ALBUMIN AND TPN. OTHERWISE, WE PLAN TO FOLLOW UP WITH AM LABS AND CONTINUE TO MONITOR. - Past Medical Family Social History Past Med/Fam/Surg Hx: No changes since H&P Allergies: Allergies Penicillins Allergy (Verified 05/02/18 21:06) phenazopyridine [From AZO Standard] Allergy (Verified 09/18/18 15:01) Sulfa (Sulfonamide Antibiotics) Allergy (Verified 05/02/18 21:06) - Review of Systems ROS: No change since H&P - Vital Signs and I&O's Vital Signs: Temperature 97.5 F Pulse Rate [Apical] 58 Pulse Rate 55 Respiratory Rate 18 Blood Pressure [Left Arm] 166/70 Blood Pressure [Right Arm] 171/74 Blood Pressure 137/75 O2 Sat by Pulse Oximetry 94 - Physical Exam Oriented: Normal Eyes: Normal Ear: Normal Nose: Normal Throat: Normal Respiratory: Normal Cardiovascular: Normal : Normal Auscultation: Bowel Sounds: Normal Palpation: Normal Tenderness: Normal Skin: Normal Musculoskeletal: Normal Psychiatric: Normal Mood Description: Calm Affect: Normal Speech Pattern: Clear, Appropriate - Laboratory and Diagnostics Result Diagrams: 09/20/18 05:41 09/20/18 05:41 Labs: 09/18/18 12:25 Urine,Clean Catch Urine Culture - Final [facility] WBC 5.8 X10^3/uL (3.6-10.0) 09/20/18 05:41 RBC 3.45 X10^6/uL (3.5-5.4) L 09/20/18 05:41 Hgb 11.5 g/dL (12.0-16.0) L 09/20/18 05:41 Hct 34.3 % (36.0-47.0) L 09/20/18 05:41 MCV 99.5 fL (80.0-100.0) 09/20/18 05:41 MCH 33.3 pg (27.0-34.0) 09/20/18 05:41 MCHC 33.5 g/dL (33.0-35.0) 09/20/18 05:41 RDW 13.0 % (11.6-16.5) 09/20/18 05:41 Plt Count 154 X10^3/uL (150.0-450.0) 09/20/18 05:41 MPV 8.8 fL (7.4-11.0) 09/20/18 05:41 Neut % (Auto) 48.8 % (42.0-75.0) 09/20/18 05:41 Lymph % (Auto) 33.4 % (21.0-51.0) 09/20/18 05:41 [place] % (Auto) 11.9 % (0.0-13.0) 09/20/18 05:41 Eos % (Auto) 4.6 % (0.9-2.9) H 09/20/18 05:41 Baso % (Auto) 1.3 % (0.2-1.0) H 09/20/18 05:41 Neut # (Auto) 2.8 x10^3/uL (2.2-4.8) 09/20/18 05:41 Lymph # (Auto) 1.9 X10^3/uL (1.3-2.9) 09/20/18 05:41 [place] # (Auto) 0.7 x10^3/uL (0.3-0.8) 09/20/18 05:41 Eos # (Auto) 0.3 x10^3/uL (0.0-0.2) H 09/20/18 05:41 Baso # (Auto) 0.1 X10^3/uL (0.0-0.1) 09/20/18 05:41 Absolute Nucleated RBC 0.0 /100WBC 09/20/18 05:41 Sodium 141 mmol/L (136-145) 09/20/18 05:41 Corrected Sodium TNP 09/20/18 05:41 Potassium 3.7 mmol/L (3.5-5.1) 09/20/18 05:41 Chloride 109 mmol/L (98-107) H 09/20/18 05:41 Carbon Dioxide 24.7 mmol/L (21-32) 09/20/18 05:41 BUN 19 mg/dL (7-18) H 09/20/18 05:41 Creatinine 0.93 mg/dL (0.55-1.02) 09/20/18 05:41 Est GFR (MDRD) Af Amer > 60 (>60) 09/20/18 05:41 Est GFR (MDRD) Non-Af > 60 (>60) 09/20/18 05:41 Glucose 99 mg/dL (65-99) 09/20/18 05:41 POC Glucose (mg/dL) 102 mg/dL (65-99) H 09/19/18 11:33 Calcium 8.6 mg/dL (8.5-10.1) 09/20/18 05:41 Corrected Calcium 9.4 mg/dL (8.5-10.1) 09/20/18 05:41 Magnesium 2.0 mg/dL (1.7-2.9) 09/20/18 05:41 Total Bilirubin 0.40 mg/dL (0.2-1.0) 09/20/18 05:41 AST 24 Units/L (15-37) 09/20/18 05:41 ALT 30 Units/L (12-78) 09/20/18 05:41 Alkaline Phosphatase 54 Units/L (46-116) 09/20/18 05:41 Total Protein 5.9 g/dL (6.4-8.2) L 09/20/18 05:41 Albumin 3.0 g/dL (3.4-5.0) L 09/20/18 05:41 Globulin 2.9 g/dL (2.5-4.5) 09/20/18 05:41 Albumin/Globulin Ratio 1.0 Ratio (1.1-2.1) L 09/20/18 05:41 Specimen Type Clean catch urine 09/18/18 12:25 Urine Color Yellow (YELLOW) 09/18/18 12:25 Urine Appearance Clear (CLEAR) 09/18/18 12:25 Urine pH 6.5 (5.0 - 8.0) 09/18/18 12:25 Ur Specific [place] 1.005 (1.000-1.030) 09/18/18 12:25 Urine Protein Negative (NEGATIVE) 09/18/18 12:25 Urine Glucose (UA) Negative (NEGATIVE) 09/18/18 12:25 Urine Ketones Negative (NEGATIVE) 09/18/18 12:25 Urine Occult Blood Negative (NEGATIVE) 09/18/18 12:25 Urine Nitrite Negative (NEGATIVE) 09/18/18 12:25 Urine Bilirubin Negative (NEGATIVE) 09/18/18 12:25 Urine Urobilinogen Normal (NORMAL) 09/18/18 12:25 Ur Leukocyte Esterase 1+ (NEGATIVE) 09/18/18 12:25 Urine RBC 0-2 /HPF (NONE SEEN) 09/18/18 12:25 Urine WBC 3-5 /HPF (NONE SEEN) 09/18/18 12:25 Ur Squamous Epith Cells Rare /HPF (NEGATIVE) 09/18/18 12:25 Amorphous Sediment 1+ /HPF (NEGATIVE) 09/18/18 12:25 Urine Bacteria Trace /HPF (NEGATIVE) 09/18/18 12:25 Ur Culture Indicated? Yes/culture set up 09/18/18 12:25 - Plan (1) Generalized weakness Status: Acute Plan: PHYSICAL THERAPY, NORMAL SALINE AT 80ML/HR (2) Fatigue Status: Acute Qualifiers: Fatigue type: unspecified Qualified Code(s): R53.83 - Other fatigue (3) Hypoalbuminemia Status: Acute Plan: IV TPN, ALBUMIN
== END 2018-09-20 11:45 | disposition home or self-care (01) ==
LOC: ICU → MED/SURG 09-19 17:04
PROVIDERS: ADMIT Internal Medicine; ATTEND Internal Medicine
DX: R53.83 Other fatigue; I67.2 Cerebral atherosclerosis; R26.89 Other abnormalities of gait and mobility; E78.2 Mixed hyperlipidemia; I48.2 Chronic atrial fibrillation; E11.65 Type 2 diabetes mellitus with hyperglycemia; N39.0 Urinary tract infection, site not specified; I10 Essential (primary) hypertension; R53.1 Weakness; B96.4 Proteus (mirabilis) (morganii) as the cause of diseases classified elsewhere
CPT/HCPCS: 36415; 70450; 71010; 71045; 80053; 81001; 83735; 85025; 87086; 87088; 87186; 94640; 97166; A4216; A4222; B5200; P9047; G0378; J1650; J7030; J7626